=== PATIENT | male | born 1990 | race Two or more races ===

== ENCOUNTER 2016-12-29 22:07 | Emergency (ER) | payer SELFPAY ==
[~2016-12-29] VITALS: Ht 180.3 cm; Wt 82.0 kg
[2016-12-29 22:25] VITALS: BP 113/78
== END 2016-12-30 03:09 | disposition left against medical advice (07) ==
LOC: ER 22:34
DX: F10.129 Alcohol abuse with intoxication, unspecified (principal); Z53.21 Procedure and treatment not carried out due to patient leaving prior to being seen by health care provider